=== PATIENT | male | born 1945 | race Caucasian/White ===

== ENCOUNTER 2017-04-03 08:16 | Day surgery (SDC) | payer MEDICARE, OTHER ==
--- NOTE | ~2017-04-03 | EGD ---
EGD REPORT [facility] [address] [id number] NAME: ANDREW WILD : [birth year] STATUS : REG [facility]#: [id number] AGE: 71 ADM/REG DATE : 04/03/17 MR#: [id number] REPORT SERV DATE: 04/03/17 DICTATED BY: DATE: REPORT STATUS : Draft TRANSCRIBED BY: [employer] DATE: 04/03/17 [facility] Patient Name: Andrew Wild Date of : 1945 Attending MD: HAN OLU MD Procedure Date No Time: 04/03/2017 Procedure: Upper GI endoscopy Indications: Cirrhosis rule out esophageal varices Referring MD: JOSE ENRIQUE BAGLEY Medicines: Monitored Anesthesia Care Complications: No immediate complications. Procedure: Pre-Anesthesia Assessment: - ASA Grade Assessment: III - A patient with severe systemic disease. After obtaining informed consent, the endoscope was passed under direct vision. Throughout the procedure, the patient's blood pressure, pulse, and oxygen saturations were monitored continuously. The GIF [id number] was introduced through the mouth, and advanced to the second part of duodenum. The upper GI endoscopy was accomplished without difficulty. The patient tolerated the procedure well. Findings: The examined esophagus was normal. There is no endoscopic evidence of Faye's esophagus, areas of erosion, hiatus hernia, stenosis, ulcerations or varices in the entire esophagus. Diffuse mildly erythematous mucosa without bleeding was found in the gastric body and in the gastric antrum. Biopsies were taken with a cold forceps for Helicobacter pylori testing. No other significant abnormalities were identified in a careful examination of the stomach. There is no endoscopic evidence of inflammation, mucosal abnormalities, ulceration or varices in the entire examined stomach. Multiple erosions were found in the first part of the duodenum and in the second part of the duodenum. One non-bleeding superficial duodenal ulcer was found in the second part of the duodenum. There is no endoscopic evidence of mucosal abnormalities or stenosis in the entire examined duodenum. The cardia and gastric fundus were normal on retroflexion. Impression: - Normal esophagus. - Erythematous mucosa in the gastric body and antrum. EGD REPORT [address] [address] NAME: ANDREW WILD : [birth year] STATUS : REG [facility] PAT#: [id number] AGE: 71 ADM/REG DATE : 04/03/17 MR#: [id number] REPORT SERV DATE: 04/03/17 DICTATED BY: DATE: REPORT STATUS : Draft TRANSCRIBED BY: [employer] DATE: 04/03/17 Biopsied. - Duodenal erosions. - One duodenal ulcer with clean base. Recommendation: - Patient has a contact number available for emergencies. The signs and symptoms of potential delayed complications were discussed with the patient. Return to normal activities tomorrow. Written discharge instructions were provided to the patient. - Return to previous diet. - Discharge patient to home. - No aspirin, ibuprofen, naproxen, or other non-steroidal anti-inflammatory drugs. - Use Prilosec (omeprazole) 20 mg PO daily for 12 weeks. - Await pathology results. - Repeat the upper endoscopy in 2 years for surveillance. Procedure Code(s): --- Professional --- 96042, Esophagogastroduodenoscopy, flexible, transoral; with biopsy, single or multiple Diagnosis Code(s): --- Professional --- K31.9, Disease of stomach and duodenum, unspecified K26.9, Duodenal ulcer, unspecified as acute or chronic, without hemorrhage or perforation K74.60, Unspecified cirrhosis of liver CPT copyright 2013 [employer]. All rights reserved. The codes documented in this report are preliminary and upon hopper feeder review may be revised to meet current compliance requirements. HAN LOU MD 04/03/2017 11:45 AM This report has been signed electronically. Number of Addenda: 0 Note Initiated On: 04/03/2017 11:25 AM Scope Withdrawal Time 0 hours 0 minutes 0 seconds [address] [id number]
[~2017-04-03 08:16] MED LIST: GENASOFT100 MG PO; L20 PO; LACT30UDL PO; PEP20 PO; VITAMIN A8000 UNIT PO; VITAMIN D31000 UNIT PO; XIFAXAN PO; XIFAXAN550 MG PO
== END 2017-04-03 23:59 | disposition home or self-care (01) ==
LOC: DMU 08:16
PROVIDERS: Internal Medicine Gastroenterology
PROC: 0DB68ZX Excision of Stomach, Via Natural or Artificial Opening Endoscopic, Diagnostic (ICD-10-PCS; principal; 2017-04-03 12:00)
DX: K31.9 Disease of stomach and duodenum, unspecified (principal); K26.9 Duodenal ulcer, unspecified as acute or chronic, without hemorrhage or perforation; E66.01 Morbid (severe) obesity due to excess calories; K21.9 Gastro-esophageal reflux disease without esophagitis; Z87.442 Personal history of urinary calculi
CPT/HCPCS: 88305